=== PATIENT | female | born 1970 | race Caucasian/White ===

== ENCOUNTER → 2023-07-23 | Outpatient (CLI) | payer OTHER | LOC: LAB 09:50 → LAB SHORT 09:50 | DX: N85.8 Other specified noninflammatory disorders of uterus (principal); N85.9 Noninflammatory disorder of uterus, unspecified | CPT/HCPCS: 88305 ==

== ENCOUNTER → 2023-08-23 | Outpatient (CLI) | payer OTHER | END | disposition home or self-care (01) | LOC: LAB SHORT 08:28 → LAB 08:28 | DX: R93.89 Abnormal findings on diagnostic imaging of other specified body structures (principal) | CPT/HCPCS: 88305 ==

== ENCOUNTER → 2023-09-20 | Outpatient (CLI) | payer OTHER ==
[~2023-09-20] MED LIST: DRIMINATE50 M1 PO; IBUP200 PO; TRAZ50 PO; VITAMIN D310 MC4 PO
[2023-09-20 17:41] LABS: Source, Urine Clean Catch
[2023-09-20 19:26] LABS: Bilirubin, Urine Neg (Neg); Blood, Urine Neg (Neg); Color, Urine Yellow (P-Yellow); Glucose Qualitative, Urine Neg (Neg); Ketones, Urine Neg (Neg); Leukocyte Esterase, Urine Neg (Neg); Nitrite, Urine Neg (Neg); Protein, Urine Neg (Neg); Specific Gravity, Urine 1.015 (1.003-1.022); Urobilinogen, Urine NORM (Normal)
[2023-09-20 19:38] LABS: Appearance, Urine Clear (Clear)
== END | disposition home or self-care (01) ==
LOC: LAB SHORT 17:40 → LAB 17:40
PROVIDERS: Obstetrics & Gynecology
DX: Z01.812 Encounter for preprocedural laboratory examination (principal)
CPT/HCPCS: 81003

== ENCOUNTER → 2024-07-09 | Outpatient (CLI) | payer OTHER ==
[~2024-07-09] MED LIST changes: +CIPR500 PO; +METR500 PO; +ROSU5
== END ==
LOC: LAB SHORT 15:17 → LAB 15:17
DX: R82.90 Unspecified abnormal findings in urine (principal)
CPT/HCPCS: 87086